=== PATIENT | female | born 1965 | race Caucasian/White ===

== ENCOUNTER 2017-08-02 06:30 | Emergency (ER) | payer OTHER ==
[~2017-08-02] VITALS: Ht 160 cm; Wt 100.8 kg
[~2017-08-02 06:30] MED LIST: BUPR-83 PO; LEVO25TA PO; PRLSR20 PO
[2017-08-02 06:43] VITALS: TEMP 36.6; Ht 160 cm; Wt 100.8 kg
[2017-08-02] MEDS ORDERED: ONDANSETRON 4MG OD TAB PO STA (06:56)
[2017-08-02] MEDS ORDERED: OXYCODONE HCL IR 5 MG TAB (IMMEDIATE RELEASE) PO STA ×2 (06:56→09:21)
[2017-08-02] MEDS ORDERED: IBUPROFEN 800 MG TAB PO STA (06:56)
--- NOTE | 2017-08-02 07:02 | EMERGENCY ROOM VISIT NOTE ---
History Report prepared by Emre: Zuleika Alcantar Under the Supervision of: Dr. Brenden Soni M.D. First contact with patient: 06:51 Chief Complaint: FALL Stated Complaint: FELL ON RIGHT SHOULDER- CAN'T MOVE IT History of Present Illness The patient is a 52 year old female who presents to the Emergency Room with complaints of a sudden fall that occurred one hour prior to arrival. She currently rates her discomfort as an 8-10/10 in severity. The patient states that she was getting out of the car when she slipped and fell on ice. She states that she fell onto her right shoulder, injuring it. The patient denies any head injury or loss of consciousness. She denies taking anything for her discomfort. The patient reports increased pain with movement. She denies any previous injury to her right shoulder. The patient denies being on blood thinners. She denies any other complaints. Source of History: patient Onset: one hour prior to arrival Position: other (global) Symptom Intensity: 8-10/10 Quality: other (fall) Timing: other (sudden) Modifying Factors (Worsening): movement Note: Associated Symptoms: right shoulder injury Review of Systems See HPI for pertinent positives & negatives. A total of 10 systems reviewed and were otherwise negative. Past Medical & Surgical Medical Problems: (1) Breast cancer Surgical Problems: (1) H/O mastectomy Family History No pertinent family history stated Social History Smoking Status: Never Smoker Marital Status: Housing Status: lives with significant other Occupation Status: employed Current/Historical Medications Scheduled Bupropion (Wellbutrin), 200 MG PO HS Levothyroxine Sodium (Synthroid), 25 MCG PO DAILY Omeprazole (Prilosec), 20 MG PO DAILY Scheduled PRN Oxycodone Ir (Roxicodone Ir), 1-2 TAB PO Q4H PRN for Pain Allergies Coded Allergies: No Known Allergies (Unverified , 08/02/17) Physical Exam Vital Signs Date Time Temp Pulse Resp B/P (MAP) Pulse Ox O2 Delivery O2 Flow Rate FiO2 08/02/17 10:43 70 16 147/82 99 08/02/17 08:45 74 20 95 Room Air 08/02/17 06:43 36.6 63 18 93 Room Air Physical Exam GENERAL: Patient is in no acute distress. HEENT: No acute trauma, normocephalic atraumatic, mucous membranes moist, no nasal congestion, no scleral icterus. No scalp hematoma NECK: No stridor, no adenopathy, no meningismus, trachea is midline. No posterior c-spine tenderness LUNGS: Clear to auscultation bilaterally, no wheeze, no rhonchi, breath sounds equal. HEART: Without murmurs gallops or rubs, regular rate and rhythm. ABDOMEN: Soft, nontender, bowel sounds positive, no hernias, no peritonitis. EXTREMITIES: Tender over the lateral and anterior shoulder, no obvious dislocation clinically, right clavicle stable and nontender, right elbow and right wrist nontender, NVI distally. NEUROLOGIC: Oriented x 3, no acute motor or sensory deficits, no focal weakness. SKIN: No rash, no jaundice, no diaphoresis. Medical Decision & Procedures ER Provider Diagnostic Interpretation: Radiology results as stated below per my review and radiologist interpretation: R SHOULDER MIN 2 VIEWS ROUTINE CLINICAL HISTORY: 52 years-old Female presenting with fall, pain. TECHNIQUE: Neutral and transscapular Y views of the right shoulder were obtained. COMPARISON: None. FINDINGS: The humeral head may be slightly superiorly subluxed though no dislocation is present. The acromioclavicular joint is congruent. Allowing for the limited views and underpenetration secondary to body habitus, no gross evidence of a displaced fracture. Visualized portion of the right hemithorax normal. IMPRESSION: Slight superior subluxation of the humeral head, which could be chronic. No gross evidence of a dislocation or fracture allowing for suboptimal image quality. Electronically signed by: Brady Baker M.D. 08/02/2017 7:45 AM Dictated Date/Time: 08/02/2017 7:43 AM R UPPER EXTREMITY WITHOUT CT DOSE: 891.69 mGy.cm HISTORY: Trauma. Pain. right shoulder, fall, severe pain TECHNIQUE: Multiaxial CT images of the right shoulder were performed and reformatted in the sagittal and coronal plane without the use of contrast. A dose lowering technique was utilized adhering to the principles of ALARA. COMPARISON: None. FINDINGS: Comminuted fracture right humeral head and neck. There is a slight degree of impaction of the humeral shaft to the region of the humeral head. There is a nondisplaced avulsion of the greater tuberosity. Fracture extends to the anterior and posterior aspects of the articular services subtle there is no significant displacement of that structure. Glenoid appears to be intact. There is no evidence of dislocation. Remaining osseous structures show no additional acute bony abnormality. IMPRESSION: 1. Mildly impacted fracture humeral neck with mild superior migration of the humeral shaft 2. Fracture extends to the anterior and posterior aspects of the articular surface, although the bulk of the central articular surface is intact 3. No evidence of dislocation The above report was generated using voice recognition software. It may contain grammatical, syntax or spelling errors. Electronically signed by: Olegario Devine M.D. 08/02/2017 8:20 AM Dictated Date/Time: 08/02/2017 8:15 AM Medications Administered Medications (Trade) Dose Ordered Sig/Mame Route Start Time Stop Time Status Last Admin Dose Admin Ibuprofen (Motrin Tab) 800 mg NOW STAT PO 08/02/17 06:56 08/02/17 06:59 DC 08/02/17 07:03 800 MG Oxycodone HCl (Roxicodone Immediate Rel Tab) 5 mg NOW STAT PO 08/02/17 06:56 08/02/17 06:59 DC 08/02/17 07:04 5 MG Ondansetron HCl (Zofran Odt) 4 mg NOW STAT PO 08/02/17 06:56 08/02/17 06:59 DC 08/02/17 07:04 4 MG Oxycodone HCl (Roxicodone Immediate Rel Tab) 5 mg NOW STAT PO 08/02/17 09:21 08/02/17 09:22 DC 08/02/17 09:30 5 MG ED Course 0654: The patient was evaluated in room B10. A complete history and physical exam was performed. 0656: Ordered Zofran Odt 4 mg PO, Oxycodone HCl 5 mg PO, Ibuprofen 800 mg PO. 0916: I discussed the patients case with [facility]. He states that he is going to talk to his attending and look at the films and get back to us about the plan. 0921: Ordered Oxycodone HCl 5 mg PO. 0938: I reevaluated the patient and she is resting. I updated her that we are awaiting callback from orthopedics. 0940: I spoke to Rudi Bowden PA-C. He states that the patient can be placed in a sling and can follow up as an outpatient in the office. 1020: I reevaluated the patient and she is doing well. I updated her at this time and she is ready to go home. Medical Decision The patient is a 52 year old female who presents to the ED with complaints of a sudden fall. Differential diagnoses considered include Clavicle or humerus fracture, shoulder dislocation, rib fracture, cervical spine injury, head trauma , neurovascular compromise. The patient presents with pain in her right shoulder after falling in the slippery conditions outside. She has no evidence clinically for injury to the head, neck, chest, abdomen, back or lower extremities. Her injury was isolated to the right upper extremity. No evidence for neurovascular compromise to the right upper extremity. Films of the right shoulder are poor and hard to read. For this reason, a shoulder CT was done. This does show evidence for a fracture to the proximal humeral neck and head. No dislocation of the shoulder by CT imaging. The patient received oral Motrin, oral Zofran and oral oxycodone. Her right arm was placed in a sling. I spoke with orthopedics, they reviewed the films. No surgical intervention required. The patient is being discharged with a sling, outpatient follow-up. I did prescribe oxycodone for pain. If worsening, she can return. [place] Drug Monitoring Program Search Results: patient reviewed within database, no issues identified Medication Reconcilliation Current Medication List: was personally reviewed by me Blood Pressure Screening Patient's blood pressure: Elevated blood pressure Blood pressure disposition: Elevated BP felt to be situational Consults Time Called: 0831 Consulting Physician: Ama Bowden PA-C Returned Call: 0940 I spoke to Rudi Bowden PA-C. He states that the patient can be placed in a sling and can follow up as an outpatient in the office. Impression Primary Impression: Closed fracture of right proximal humerus Additional Impression: Fall Scribe Attestation The scribe's documentation has been prepared under my direction and personally reviewed by me in its entirety. I confirm that the note above accurately reflects all work, treatment, procedures, and medical decision making performed by me. Departure Information Dispostion Home / Self-Care Prescriptions Oxycodone Ir (Roxicodone Ir) 5 Mg Tab 1-2 TAB PO Q4H Y for Pain, #10 TAB Prov: Brenden Soni M.D. 08/02/17 Referrals Bret Montiel M.D. (PCP) Forms HOME CARE DOCUMENTATION FORM, IMPORTANT VISIT INFORMATION, Work Instructions Patient Instructions My [facility] Additional Instructions wear the sling contact orthopedics today for an appt in the office ice to the area will help as we discussed oxy ir 1-2 tab every 4 hours for severe pain may use motrin and tylenol for pain as well return if worsening Problem Qualifiers
--- NOTE | 2017-08-02 07:46 | DIAGNOSTIC IMAGING REPORT ---
R SHOULDER MIN 2 VIEWS ROUTINE CLINICAL HISTORY: 52 years-old Female presenting with fall, pain. TECHNIQUE: Neutral and transscapular Y views of the right shoulder were obtained. COMPARISON: None. FINDINGS: The humeral head may be slightly superiorly subluxed though no dislocation is present. The acromioclavicular joint is congruent. Allowing for the limited views and underpenetration secondary to body habitus, no gross evidence of a displaced fracture. Visualized portion of the right hemithorax normal. IMPRESSION: Slight superior subluxation of the humeral head, which could be chronic. No gross evidence of a dislocation or fracture allowing for suboptimal image quality. Electronically signed by: Brady Baker M.D. 08/02/2017 7:45 AM Dictated Date/Time: 08/02/2017 7:43 AM
--- NOTE | 2017-08-02 08:21 | DIAGNOSTIC IMAGING REPORT ---
R UPPER EXTREMITY WITHOUT CT DOSE: 891.69 mGy.cm HISTORY: Trauma. Pain. right shoulder, fall, severe pain TECHNIQUE: Multiaxial CT images of the right shoulder were performed and reformatted in the sagittal and coronal plane without the use of contrast. A dose lowering technique was utilized adhering to the principles of ALARA. COMPARISON: None. FINDINGS: Comminuted fracture right humeral head and neck. There is a slight degree of impaction of the humeral shaft to the region of the humeral head. There is a nondisplaced avulsion of the greater tuberosity. Fracture extends to the anterior and posterior aspects of the articular services subtle there is no significant displacement of that structure. Glenoid appears to be intact. There is no evidence of dislocation. Remaining osseous structures show no additional acute bony abnormality. IMPRESSION: 1. Mildly impacted fracture humeral neck with mild superior migration of the humeral shaft 2. Fracture extends to the anterior and posterior aspects of the articular surface, although the bulk of the central articular surface is intact 3. No evidence of dislocation The above report was generated using voice recognition software. It may contain grammatical, syntax or spelling errors. Electronically signed by: Olegario Devine M.D. 08/02/2017 8:20 AM Dictated Date/Time: 08/02/2017 8:15 AM
[2017-08-02] MEDS ORDERED: OXYC1TAB3 PO (10:25)
[2017-08-02 10:43] VITALS: BP 147/82; PULSE 70; O2SAT 99
== END 2017-08-02 10:51 | disposition home or self-care (01) ==
LOC: C.EDB 06:31
DX: S42.201A Unspecified fracture of upper end of right humerus, initial encounter for closed fracture (principal); W00.0XXA Fall on same level due to ice and snow, initial encounter; Z85.3 Personal history of malignant neoplasm of breast; Z90.10 Acquired absence of unspecified breast and nipple; Z79.899 Other long term (current) drug therapy